=== PATIENT | female | born 2000 | race Caucasian/White ===

== ENCOUNTER 2022-04-29 02:25 | Emergency (ER) | payer MEDICAID ==
[2022-04-29 02:33] VITALS: BP 118/41
== END 2022-04-29 09:02 | disposition left against medical advice (07) ==
LOC: ED 02:25
DX: T19.2XXA Foreign body in vulva and vagina, initial encounter (principal); Z53.21 Procedure and treatment not carried out due to patient leaving prior to being seen by health care provider; X58.XXXA Exposure to other specified factors, initial encounter; Y93.89 Activity, other specified; Y92.488 Other paved roadways as the place of occurrence of the external cause; Y99.8 Other external cause status